=== PATIENT | female | born 1995 | race Caucasian/White ===

== ENCOUNTER 2024-09-03 10:52 | Emergency (ER) | payer OTHER, SELFPAY ==
[2024-09-03 10:55] VITALS: BP 120/86
[2024-09-03 11:48] VITALS: BMI 21.2
--- NOTE | 2024-09-03 12:04 | EDRN ---
Patient with c/o right sided neck pain that started yesterday after she picked up something that she dropped. Patient stated that she flinched and developed the pain. Patient with difficulty raising her right arm .
--- NOTE | 2024-09-03 12:59 | ED.GENMED ---
History of Present Illness
General
Chief Complaint: Musculo-Skeletal Complaint
Source: patient
Exam Limitations: none
Time Seen by Provider: 09/03/24 11:39
Nursing documentation reviewed up to this point in time: agreed with
History of Present Illness
History of Present Illness:
28-year-old female presenting to the emergency department today with concerns of right-sided posterior neck discomfort over the past 24 hours. Claims that this seemed to occur when she flinched and felt a very sharp pain to her right posterior has
had difficulty moving her head since. She claims that she has had similar symptoms in the past but never this severe. Denies any numbness weakness nausea vomiting headache.
Review of Systems
Review of Systems
Allergies reviewed?: Yes
All Other Systems: ROS reviewed and negative except as documented in HPI and ROS
Phy Exam
Physical Exam
Physical Exam:
GENERAL: Alert , in no apparent distress
EYE: pupils equal and reactive
NECK: Supple, no significant adenopathy.
ENT: Patient is unwilling to rotate her head to the right and has significant difficulty laying back without assistance secondary to pain. o/p clr, mmm.
CARDIAC: Regular rate and rhythm .
LUNGS: Clear breath sounds bilaterally, no acute respiratory distress, no wheezes/rales/rhonchi
ABDOMEN: Soft, without focal tenderness, no r/g, no cvat
NEUROLOGICAL: Alert and oriented, no focal neuro deficits
SKIN: Warm and dry, skin intact.
MUSCULOSKELETAL: No edema, well perfused.
PSYCH: Normal and appropriate interaction.
Course
Orders/Labs/Results
Orders:
Orders
09/03/24 12:35
Dexamethasone [Decadron] 10 mg PO NOW STA
Diazepam [Valium] 5 mg PO NOW STA
Ketorolac [Toradol] 15 mg IM NOW STA
Vital Signs
Initial and Last Documented VS:
Initial Vital Signs
Temp Pulse Resp BP Pulse Ox
98 F 95 16 120/86 99
09/03/24 10:55 09/03/24 10:55 09/03/24 10:55 09/03/24 10:55 09/03/24 10:55
Last Documented Vital Signs
Temp Pulse Resp BP Pulse Ox
98 F 60 16 102/62 98
09/03/24 10:55 09/03/24 14:01 09/03/24 14:01 09/03/24 14:01 09/03/24 14:01
MDM/Problems Addressed
MDM/Problems Addressed:
28-year-old female presenting with concerns of right posterior neck pain after a quick movement yesterday. Ongoing pain since. Difficulty moving her head to any extent. Neuro vastly intact. Likely muscle pull to the neck. Plan for symptomatic
treatment. Patient reassessed after treatment with significant improvement of symptoms. No evidence of any life-threatening process stable for outpatient management. The utility of imaging at this point was discussed with the patient and we opted
to not get imaging as bone structure abnormality is very unlikely. Seem to be mostly muscular. She was advised to return symptoms or progressive or changing in a concerning way.
*Pulse Oximetry
SaO2: 99
Oxygen Mode of Delivery: Room air
Patient hypoxic: no (98)
*Critical Care Note
Total Time (30-74mins, 75-104mins- exclusive of procedures): Not Applicable
ED Attending Note
-
Portions of this chart may have been created with voice recognition software.� Occasional wrong word or��sound alike� substitutions may have occurred due to the inherent limitations of voice recognition software.
Discharge Plan
Departure
Patient Disposition: Home (Routine Discharge)
Date of Disposition: 09/03/24
Time of Disposition: 14:11
Patient with high blood pressure during this ER visit?: No
Condition: Good
Covid-19: Not Applicable
Discharge Problem:
Neck strain
Instructions: Muscle Strain (DC)
Prescriptions:
New
cyclobenzaprine 10 mg tablet
10 mg PO BID PRN (Reason: muscle spasm) Qty: 7 0RF
methylprednisolone [Medrol (Jeremy)] 4 mg tablets,dose pack
See Rx Instructions .ROUTE .COMPLEX Qty: 21 0RF
Rx Instructions:
for 6 days
No Action
cetirizine [Zyrtec] 10 mg Tablet
10 mg PO DAILY
dextroamphetamine-amphetamine [Adderall] 30 mg Tablet
30 mg PO DAILY
escitalopram oxalate [Lexapro] 10 mg Tablet
10 mg PO DAILY
Referrals:
Matilda Granda MD [Family Provider, Internal Medicine]
Activity Restrictions/Additional Instructions:
You came to the emergency department today with concerns of neck discomfort. This is likely a muscle strain. Please use the prescribed medications and rest over the next few days. Return for any worsening, new or concerning symptoms.
Interventions
Interventions:
*Risk Screen - Suicide Last Done: 09/03/24 11:46
*General Assessment Last Done: 09/03/24 11:46
*Neglect/Abuse Screening Last Done: 09/03/24 10:55
*ED- Fall Risk Assessment Last Done: 09/03/24 11:46
*ED COVID-19 Vaccine History Last Done: 09/03/24 11:46
ED-Musculoskeletal Assessment Last Done: 09/03/24 11:46
Discharge Date and Time
Print Language: DOMINICAN
[2024-09-03] MEDS: VALIUM 5 MG PO (13:00)
[2024-09-03] MEDS: TORADOL 15 MG IM (13:00)
[2024-09-03] MEDS: DECADRON 10 MG PO (13:00)
[2024-09-03 14:01] VITALS: BP 102/62
[2024-09-03 14:20] VITALS: BP 102/62
--- NOTE | 2024-09-03 14:30 | EDRN ---
Reviewed discharge instructions with patient. Verbalized understanding. Ambulated with steady gait to the lobby.
== END 2024-09-03 14:20 | disposition home or self-care (01) ==
LOC: EMR 10:52
PROVIDERS: EMERGENCY PHYSICIAN Student in an Organized Health Care Education/Training Program; FAMILY PHYSICIAN Emergency Medicine
DX: S16.1XXA Strain of muscle, fascia and tendon at neck level, initial encounter (principal); X58.XXXA Exposure to other specified factors, initial encounter
CPT/HCPCS: 96372; 99284